=== PATIENT | female | born 1995 | race Caucasian/White ===

== ENCOUNTER 2017-05-25 21:20 | Outpatient (CLI) | payer OTHER ==
[2017-05-25 21:43] VITALS: BP 117/73
[2017-05-25] MEDS ORDERED: LACTATED RINGERS 1,000 ML IV ONE (22:14)
[2017-05-25] MEDS ORDERED: LACTATED RINGERS 1,000 ML ONE (22:22)
[2017-05-25 22:52] LABS: Bilirubin,Urine NEG (Negative); Blood,Urine NEG (Negative); Ketones,Urine NEG (Negative); Leukocyte Esterase,Urine NEG (Negative); Mucus,Urine 3+ /HPF; Nitrite,Urine NEG (Negative)
--- NOTE | 2017-05-26 08:33 | Ultrasound Report ---
OB ULTRASOUND FOLLOWUP History: well-being, evaluate cervical length and growth. Technique: Transabdominal ultrasound with Doppler interrogation. Gestation: Single Position: Transverse with head to maternal right Amniotic Fluid: Normal ACE = 12.6 cm Placenta: Anterior Placental Grade: 0 Heart Rate: 160 BPM Cervical length: 4.5 cm (Normal > 3 cm) BPD: 7.5 cm = 30 w 2 d HC: 26.9 cm = 29 w 2 d AC: 27.2 cm = 31 w 1 d FL: 5.7 cm = 29 w 6 d HC/AC Ratio: 0.99 Estimated Weight: 1597 grams LMP: Uncertain Clinical age = w d EDC: US Gest. Age = 30 w 0 d EDC: 08/04/17
== END 2017-05-26 01:05 | disposition home or self-care (01) ==
LOC: TRG 21:20
PROVIDERS: ATTEND Obstetrics & Gynecology Gynecology
DX: O32.2XX0 Maternal care for transverse and oblique lie, not applicable or unspecified (principal); O26.893 Other specified pregnancy related conditions, third trimester; R10.9 Unspecified abdominal pain; Z3A.31 31 weeks gestation of pregnancy
CPT/HCPCS: 59025; 76816; 81001; 96360; J7120

== ENCOUNTER 2017-07-31 20:55 | Inpatient (IN) | payer OTHER ==
[2017-07-31] MEDS ORDERED: LACTATED RINGERS 1,000 ML ONE ×2 (21:10→21:20)
[2017-07-31] MEDS ORDERED: BRETHINE IVP PRN (21:26)
[2017-07-31] MEDS ORDERED: BRETHINE SUB-Q PRN (21:26)
[2017-07-31] MEDS ORDERED: ePHEDrine SULFATE IV PRN (21:26)
[2017-07-31] MEDS ORDERED: POLYCILLIN/NS 2 GM/100 ML 2 GM/100 ML BAG IV ONE (21:26)
[2017-07-31] MEDS ORDERED: MINERAL OIL PO PRN (21:26)
[2017-07-31] MEDS ORDERED: ZOFRAN IV PRN ×2 (21:26→22:26)
[2017-07-31] MEDS ORDERED: XYLOCAINE 2% INFILTRATI ONE (21:26)
[2017-07-31] MEDS ORDERED: SUBLIMAZE IV PRN (21:26)
--- NOTE | 2017-07-31 21:26 | History and Physical Report ---
History of Present Illness Date of examination: 07/31/17 Date of admission: 07/31/17 20:57 Chief complaint: Painful contractions in active labor History of present illness: 22-year-old 002 at 39 weeks presents in active labor, she is a [employer] patient and is incarcerated. 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 denies: smoking - Obstetrical History Expected Date of Delivery: 08/04/17 Actual Gestation: 39 Week(s) 3 Day(s) : 3 Para: 2 Medications and Allergies Allergies Allergy/AdvReac Type Severity Reaction Status Date / Time No Known Allergies Allergy Verified 01/25/16 08:30 Home Medications Medication Instructions Recorded Confirmed Last Taken Type Doxylamine Succinate/Vit B6 2 each PO HS #20 tablet. 05/20/15 01/26/16 Unknown Rx [Eric Shin 10-10 mg Tablet] Vit-Fe Fumar-FA [ 1 tab PO QDAY #30 tablet 05/20/15 01/26/16 Unknown Rx Vitamin] Ibuprofen [Motrin 600 MG tab] 600 mg PO Q8H PRN #30 tablet 01/26/16 Unknown Rx Multivitamin with Iron 1 each PO DAILY #30 tablet 01/26/16 Unknown Rx [Multivitamins with Iron] Review of Systems Constitutional: no fever, no chills, no sweats, no weakness, no lethargy, no chronic headaches, no chronic pain Cardiovascular: no chest pain, no orthopnea, no edema, no lightheadedness, no shortness of breath, no dyspnea on exertion, no paroxysmal nocturnal dyspnea, no high blood pressure Respiratory: no cough, no excessive sputum, no shortness of breath, no dyspnea on exertion Gastrointestinal: no abdominal pain, no nausea, no vomiting, no heartburn, no indigestion Genitourinary: no vaginal bleeding, no vaginal discharge, no leakage of fluid, no pelvic pain - Physical Exam Cardiovascular: Regular rate, Normal S1, Normal S2 Lungs: Positive: Clear to auscultation, Normal air movement Abdomen: Positive: normal appearance, soft. Negative: distention, tenderness, guarding, rigidity Genitourinary (Female): Positive: normal external genitalia Uterus: Positive: enlarged (EFW ~ 3600). Negative: tender Adnexa: both: normal Extremities: Positive: normal - Obstetrical FHR: category 1 Cervical Dilatation: 8 station: -1 Results All other labs normal. Assessment and Plan A: 22-year-old at 39+1 weeks in active labor -Cat 1 tracing P: -Admit -Obtain routine labs -Epidural when necessary -Expectant management - Patient Problems (1) 39 weeks gestation of Current Visit: Yes Status: Acute (2) Active labor at term Current Visit: Yes Status: Acute
[2017-07-31 21:50] LABS: Hematocrit 33.9 % (30.3-42.9); Hemoglobin 11.1 gm/dl (10.1-14.3); Mean Corpuscular HGB Conc 33 % (30-34); Mean Corpuscular Hemoglobin 26 pg (28-32); Mean Corpuscular Volume 80 fl (79-97); Platelet Count 210 K/mm3 (140-440); Red Blood Count 4.25 M/mm3 (3.65-5.03); Red Cell Distribution Width 14.9 % (13.2-15.2)
[2017-07-31] MEDS ORDERED: LACTATED RINGERS 1,000 ML IV SCH (22:00)
[2017-07-31] MEDS ORDERED: PITOCin/NS 20 UNIT/1000ML DRIP 20 UNITS/1,000 ML BAG IV SCH ×2 (22:00→23:00)
--- NOTE | 2017-07-31 22:24 | Procedure Note ---
OB Delivery Note - Delivery Date of Delivery: 07/31/17 Surgeon: NAM PEÑA Estimated blood loss: 100cc - Vaginal Delivery presentation: vertex Delivery position: OA Intrapartum events: precipitous labor- <3hr Delivery induction: none Delivery monitor: external FHT, external uterine Route of delivery: Delivery placenta: spontaneous Delivery cord: 3 umbilical vessels Episiotomy: none Delivery laceration: 1st degree (not bleeding not repaired) Anesthesia: none - Infant A at 1 minute: 8 at 5 minutes: 9 Gender: Male (time of was 22:18, infant weight was 8 pounds 13 or 4012 g)
[2017-07-31] MEDS ORDERED: TUCKS PAD TP PRN (22:26)
[2017-07-31] MEDS ORDERED: PHENERGAN PO PRN (22:26)
[2017-07-31] MEDS ORDERED: PHENERGAN PR PRN (22:26)
[2017-07-31] MEDS ORDERED: BENADRYL PO PRN (22:26)
[2017-07-31] MEDS ORDERED: NORCO 5/325 PO PRN (22:26)
[2017-07-31] MEDS ORDERED: TYLENOL PO PRN (22:26)
[2017-07-31] MEDS ORDERED: MILK OF MAGNESIA PO PRN (22:26)
[2017-07-31] MEDS ORDERED: LANSINOH TP PRN ×2 (22:26)
[2017-07-31] MEDS ORDERED: DULCOLAX PR PRN (22:26)
[2017-07-31] MEDS ORDERED: SODIUM CHLORIDE FLUSH SYRINGE 10 ML IV NR (23:00)
[2017-08-01] MEDS ORDERED: POLYCILLIN/NS 1 GM/50 ML 1 GM/50 ML BAG IV SCH (02:00)
[2017-08-01] MEDS: MOTRIN PO SCH ×4 (06:03→23:21)
--- NOTE | 2017-08-01 10:28 | Progress Note ---
Assessment and Plan A: PPD 1 - stable P: Continue routine orders Discharge pt to [facility] exam due in 6 weeks Subjective - Subjective Date of service: 08/01/17 Principal diagnosis: Normal Spontaneous Vaginal Delivery Patient reports: appetite normal, voiding normally, pain well controlled, ambulating normally [place]: doing well, bottle feeding Objective - Vital Signs Latest vital signs: Vital Signs Temp Pulse Resp BP BP 08/01/17 08:30 98.3 F 78 18 98/63 08/01/17 00:41 81 134/85 08/01/17 00:26 68 134/79 08/01/17 00:24 80 97/55 08/01/17 00:12 92 H 105/59 08/01/17 00:11 96 H 116/74 07/31/17 23:56 82 120/74 07/31/17 23:41 84 111/63 07/31/17 23:26 70 120/77 07/31/17 23:11 71 115/70 07/31/17 22:56 80 124/72 07/31/17 22:41 98 H 124/71 07/31/17 20:57 99.1 F 86 22 119/79 Intake and Output 07/31/17 08/01/17 08/01/17 23:59 07:59 15:59 Intake Total 360 Output Total 300 Balance -300 360 Intake: Oral 360 Output: Urine 300 Void 300 Other: Total, Intake Amount 360 Total, Output Amount 300 Weight 74.843 kg Estimated Blood Loss 100 - Exam Cardiovascular: Present: Regular rate, Normal S1, Normal S2, No murmurs Lungs: Present: Clear to auscultation, Normal air movement Abdomen: Present: normal appearance Vulva: both: laceration/episiotomy (hemostatic) Uterus: Present: normal, firm, fundal height below umbilicus Extremities: Present: normal Deep Tendon Reflex Grade: Normal +2 - Labs Labs: Abnormal lab results 07/31/17 Range/Units 21:10 WBC 11.9 H (4.5-11.0) K/mm3 MCH 26 L (28-32) pg
[2017-08-01 10:45] LABS: Hematocrit 29.1 % (30.3-42.9); Hemoglobin 9.6 gm/dl (10.1-14.3)
[2017-08-01] MEDS: COLACE PO SCH ×2 (11:43→23:20)
[2017-08-01] MEDS: FEOSOL PO SCH ×2 (11:43→23:20)
[2017-08-01] MEDS: PRENATAL VITAMIN PO SCH (11:51)
[2017-08-01 18:09] VITALS: BP 115/74
--- NOTE | 2017-08-01 18:36 | Discharge Summary ---
Providers - Providers Date of Admission: 07/31/17 20:57 Date of discharge: 08/02/17 Attending physician: TIRSO FREIRE MD 08/01/17 07:48 Consult to Case Management [CONS] Routine Services Needed at Discharge: Supervisory Clerk Notified:: Genoveva Additional Physician Instructions: Pt. is an inmate with [facility]. Primary care physician: TIRSO FREIRE MD Hospitalization Reason for admission: active labor, IUP at term Delivery: Episiotomy: none Laceration: 1st degree (hemostatic; not repaired) Other procedures: none complications: none Discharge diagnosis: IUP at term delivered baby: male Condition at discharge: Stable Disposition: [id number]/[id number]/LAW ENFORCEMENT Plan - Discharge Medications Prescriptions: HYDROcodone/ACETAMINOPHEN [[place] 5-325 Tablet] 1 each PO Q6HR #7 tablet Ibuprofen [Motrin 600 MG tab] 600 mg PO Q8H PRN #30 tablet PRN Reason: Pain Multivitamin with Iron [Multivitamins with Iron] 1 each PO DAILY #30 tablet - Provider Discharge Summary Activity: routine, no sex for 6 weeks, no heavy lifting 4 weeks, no strenuous exercise Diet: routine Instructions: routine Additional instructions: [] Smoking cessation referral if applicable(refer to patient education folder for contact #) [] Refer to [facility] Booklet Call your doctor immediately for: * Fever > 100.5 * Heavy vaginal bleeding ( >1 pad per hour) * Severe persistent headache * Shortness of breath * Reddened, hot, painful area to leg or breast * Drainage or odor from incision. * Keep incision clean and dry at all times and follow doctor's instructions regarding bathing/showering - Follow up plan Follow up: TIRSO FREIRE MD [Primary Care Provider] - 6 Weeks (Follow up in 6 weeks for PP exam)
[2017-08-01] MEDS: SENOKOT S PO SCH ×2 (19:21→23:20)
[2017-08-02] MEDS: MOTRIN PO SCH (05:39)
[2017-08-02] MEDS ORDERED: BOOSTRIX IM ONE (06:00)
[2017-08-02] MEDS: PRENATAL VITAMIN PO SCH (10:00)
[2017-08-02] MEDS: FEOSOL PO SCH (10:00)
[2017-08-02] MEDS ORDERED: Fluarix Quad 2017-2018(36 MOS+ IM ONE (12:00)
== END 2017-08-02 13:40 | DRG 775 ==
LOC: TRG 20:55 → EEVIPCON 20:57 → LD 20:57 → OB 08-01 00:56
PROVIDERS: ADMIT Obstetrics & Gynecology; ATTEND Obstetrics & Gynecology
PROC: 10E0XZZ Delivery of Products of Conception, External Approach (ICD-10-PCS; principal; 2017-07-31)
PROC: 3E0234Z Introduction of Serum, Toxoid and Vaccine into Muscle, Percutaneous Approach (ICD-10-PCS; 2017-08-02)
DX: O62.3 Precipitate labor (principal); O70.0 First degree perineal laceration during delivery; Z3A.39 39 weeks gestation of pregnancy; Z37.0 Single live birth; Z23 Encounter for immunization
CPT/HCPCS: 36415; 85014; 85018; 85027; 86592; 86850; 86900; 86901; 90471; 90686; 90715; J0290; J2590; J7120